=== PATIENT | female | born 1940 | race Caucasian/White ===

== ENCOUNTER 2018-10-05 14:50 | Emergency (ER) | payer OTHER ==
[~2018-10-05] VITALS: Ht 162.6 cm; Wt 48.5 kg
[2018-10-05] MEDS ORDERED: OLANZAPINE 5 MG TABLET PO ONE (15:00)
[2018-10-05] MEDS ORDERED: OLANZAPINE 5 MG TABLET ONE (15:04)
[2018-10-05 15:07] LABS: BASOPHILS # (AUTO) 0.1 K/uL (0.0-8.0); BASOPHILS % (AUTO) 0.7 % (0.0-2.0); EOSINOPHILS # (AUTO) 0.1 K/uL (0.0-0.7); EOSINOPHILS % (AUTO) 1.4 % (0.0-7.0); HEMATOCRIT 34.3 % (31.2-41.9); HEMOGLOBIN 10.8 g/dL (10.9-14.3); LYMPHOCYTES % (AUTO) 21.6 % (20.5-51.5); MEAN CORPUSCULAR HEMOGLOBIN 26.4 uug (24.7-32.8); MEAN CORPUSCULAR HGB CONC 32 g/dL (32.3-35.6); MEAN CORPUSCULAR VOLUME 83.7 fL (75.5-95.3); MONOCYTES # (AUTO) 0.9 K/uL (2.0-10.0); MONOCYTES % (AUTO) 9.8 % (0.0-11.0); NEUTROPHILS # (AUTO) 6.1 K/uL (1.8-8.9); NEUTROPHILS % (AUTO) 66.5 % (38.5-71.5); PLATELET COUNT (AUTO) 210 K/uL (179-408); WHITE BLOOD COUNT (AUTO) 9.2 K/uL (3.8-11.8)
[2018-10-05 15:16] LABS: CARBON DIOXIDE 26 mmol/L (21-32); CHLORIDE 97 mmol/L (98-107); CREATININE 0.7 mg/dL (0.6-1.3); GLUCOSE 89 mg/dL (74-106); UREA NITROGEN, BLOOD 42 mg/dL (7-18)
[2018-10-05 15:25] LABS: ACETAMINOPHEN < 2.0 ug/mL (10-30); ALANINE AMINOTRANSFERASE 170 U/L (14-59); ALKALINE PHOSPHATASE 73 U/L (50-136); ASPARTATE AMINOTRANSFERASE 89 U/L (15-37); BILIRUBIN,DIRECT 0.1 mg/dL (0.0-0.2); BILIRUBIN,TOTAL 0.3 mg/dL (0.2-1.0)
[2018-10-05 15:28] LABS: ETHANOL < 3 MG/DL (0-0)
[2018-10-05] MEDS ORDERED: LORAZEPAM 1 MG TABLET ONE (15:30)
[2018-10-05] MEDS ORDERED: LORAZEPAM 0.5 MG TABLET PO ONE (15:30)
--- NOTE | 2018-10-05 15:50 | NUR ---
gave the requested info to [facility]
--- NOTE | 2018-10-05 16:03 | NUR ---
SS consultation requested by Dr. Asencio for APS report. Patient is a 77 year old female brought into the ED today by ambulance. Patient was recently released from a [facility] facility a few days ago, and she somehow found her way to a grocery store where she went up to a stranger (Rosalee [phone]) and told her that "I'm lost". Rosalee took her home and tried to provide her with some help for a few days, but soon realized that patient is unable to take care of herself. Rosalee came to the ED when patient was brought in and reported that patient's house is dirty/messy and patient is not able to tend to her own needs. Patient presents with altered mental status/confusion, agitation, yelling, possible psychotic features. APS report made for self-neglect; report ID # [id number].
--- NOTE | 2018-10-05 16:32 | NUR ---
SW received a call from Becky, fire assistant of the apartment building that patient resides in. Becky stated that this is the second time that paramedics and police have been called out for the patient due to patient exhibiting disruptive behavior (ex. knocking on patient's doors, not listening to the caregivers), being uncooperative with caregivers, and rapid cognitive decline. Becky stated that caregivers last a few days and then leave because of patient's behavior and her refusal of care. Becky stated that management staff are concerned that patient is unable to take care of herself, she is unable to cook or clean. Becky stated that patient had a boyfriend who used to help her, but he is currently at the [facility] due to a broken arm. Becky stated there is no family or POA. Becky provided 2 contact name/numbers: Cheli (friend) [phone] and Fransico (most recent caregiver) [phone]. Becky also provide contact information for the apartment management team: Shavon, building superintendent, and Eusebio [facility] [employer] Machine Operator [phone].
--- NOTE | 2018-10-05 16:49 | NUR ---
alberta from [facility] called and updated the allergies and meds pt takes Addendum: 10/05/18 at 1728 by FRANKI [facility] [phone], needs to be called after the psych eval for pt placement
--- NOTE | 2018-10-05 17:00 | NUR ---
hospital tray provided for pt. pt finished the tray with good apetite.
--- NOTE | 2018-10-05 17:28 | NUR ---
jose hdz at bedside for psy eval
--- NOTE | 2018-10-05 17:34 | NUR ---
jose hdz talking [facility] over the phone
--- NOTE | 2018-10-05 18:20 | NUR ---
pt resting at this point.
--- NOTE | 2018-10-05 19:15 | NUR ---
Received report from chirag RN, assumed care of pt., pt. resting in bed, bed in low position, all pt. needs met, awaiting call from [facility] for transfer
--- NOTE | 2018-10-05 19:56 | NUR ---
Received call from Cheli for status update, given number of boyfriend Delano Wiggins who is at another hospital @ [phone] ext. [phone]
--- NOTE | 2018-10-05 20:32 | NUR ---
Pt. up to use restroom w/ assistance, unable to make it fully to toilet before beginning urinating - diaper/gown/non-slip socks changed,
--- NOTE | 2018-10-05 20:33 | NUR ---
Spoke w/ Devorah at [facility] [phone] - awaiting review from Dr. Walker,
[2018-10-05] MEDS ORDERED: HALOPERIDOL LACTATE 5 MG/1 ML VIAL ONE (20:58)
[2018-10-05] MEDS ORDERED: LORAZEPAM 2 MG/1 ML VIAL ONE (20:59)
[2018-10-05] MEDS ORDERED: LORAZEPAM 2 MG/1 ML VIAL IM ONE (21:00)
[2018-10-05] MEDS ORDERED: HALOPERIDOL LACTATE 5 MG/1 ML VIAL IM ONE (21:00)
--- NOTE | 2018-10-05 21:42 | NUR ---
Pt. given applesauce,
--- NOTE | 2018-10-05 22:30 | NUR ---
Pt. resting in bed w/ eyes closed, VSS, bedf in low position, NAD
--- NOTE | 2018-10-05 23:16 | NUR ---
Received call from Orly Oseguera at [facility] [phone], designated facility from [facility] for transfer - they have requested EKG and CAT scan for transfer,
--- NOTE | 2018-10-05 23:30 | NUR ---
Pt. taken off unit by [facility]. tech. via stretcher for CT,
--- NOTE | 2018-10-05 23:42 | NUR ---
Pt. back from CT,
--- NOTE | 2018-10-06 00:30 | NUR ---
Pt. resting in bed w/ eyes closed, NAD
--- NOTE | 2018-10-06 00:40 | NUR ---
Called Radiology to contact [facility] for CT results to be read,
--- NOTE | 2018-10-06 00:55 | NUR ---
Faxed over EKG and CT results to [phone]
--- NOTE | 2018-10-06 00:56 | NUR ---
Spoke w/ Orly at [facility] - they have received the faxed results,
--- NOTE | 2018-10-06 03:16 | NUR ---
Received call from Ashley at [facility]. to no longer go to [facility], trying to get bed at [facility] now, awaiting call back,
--- NOTE | 2018-10-06 03:20 | NUR ---
Received call from Melisa at [facility] where she is consulting intake for possible admission,
--- NOTE | 2018-10-06 04:26 | NUR ---
Pt. resting in bed w/ eyes closed, NAD
--- NOTE | 2018-10-06 04:45 | NUR ---
Gave report to Sean at [facility], pt. to transfer to [facility], room 2307-A care of [facility] for pickup @ [phone]
--- NOTE | 2018-10-06 05:50 | NUR ---
[id number] here for transport, 5150/EKG/Summary report given, all belongings w/ pt.,
--- NOTE | 2018-10-06 05:56 | NUR ---
Pt. taken off unit via stretcher by BLS, all belongings w/ pt., NAD
--- NOTE | 2018-10-06 10:49 | NUR ---
TORIN received a voicemail message from Eusebio [phone], regional program manager for patient's apartment building. TORIN called Eusebio back and left him a voicemail message stating that patient has been transferred to [facility]. Per ER nursing notes, patient's friend Cheli has also been in contact with ER nurses and she has provided the nurses with additional contact name/number for patient.
--- NOTE | 2018-10-07 14:38 | NUR ---
TORIN received a voicemail message from [facility] worker Olman, following up on the report that this SW had made for this patient (see previous SS notes). TORIN called Olman back [phone] and left him a voicemail messaging stating that patient had been transferred to [facility].
== END 2018-10-06 06:04 | disposition short-term general hospital (02) ==
LOC: ER 14:50
DX: F29 Unspecified psychosis not due to a substance or known physiological condition (principal); Z88.2 Allergy status to sulfonamides; Z88.8 Allergy status to other drugs, medicaments and biological substances; Z91.018 Allergy to other foods
CPT/HCPCS: 36415; 70450; 80048; 80076; 85025; 93005; 96372 ×2; 99285; G0480 ×2; G0481; J1630; J2060; A4663